=== PATIENT | female | born 1955 | race Caucasian/White ===

== ENCOUNTER 2023-12-09 16:00 | Observation (INO) | payer OTHER, SELFPAY ==
[2023-12-09] VITALS (7 sets, daily range): BP systolic 104–129; BP diastolic 76–97; PULSE 70–100; RESP 16–21; TEMP 36.2–36.8; O2SAT 96–100; BMI 28.4
--- NOTE | ~2023-12-09 | CT_ITS ---
EXAMINATION: CTA chest PE protocol DATE: 12/09/2023 19:32 INDICATION: Shortness of breath. Chest pain. TECHNIQUE: Computed tomography angiography (CTA) of the chest was performed with 100 mL Omnipaque-350 intravenous contrast timed to evaluate the pulmonary arteries. Coronal maximum intensity projection 3D-reconstructions were created by the technologist. Automated exposure control and iterative reconst ruction technique were employed. The dose-length product was 302.83 mGy-cm. COMPARISON: Chest 2 views 12/09/2023 FINDINGS: The lungs demonstrate smooth septal thickening, consistent mild pulmonary edema. There is m ild bronchiectasis in right middle lobe, anterior segment left upper lobe, and lingula. There are air space opacities and septal thickening and centrilobular nodules with volume loss involving the upper lobes, right middle lobe, and lingula. There are trace pleural effusions. Cardiomegaly is noted. Ther e are coronary artery calcifications. There is no pulmonary embolus. There is a left chest wall pacer with leads in the right atrium and right ventricle. There are bridging endplate osteophytes at multi ple levels in the spine, consistent with diffuse idiopathic skeletal hyperostosis (DISH). There is mi ld thoracic spondylosis. IMPRESSION: 1. Mild pulmonary edema. 2. 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 3. No pulmonary embolus. Reviewed, dictated and finalized at location A. IMPRESSION: 1. Mild pulmonary edema. 2. Multifocal lung disease, likely chronic infection such as mycobacterium aviu m intracellulare (LOLI). 3. No pulmonary embolus.
--- NOTE | ~2023-12-09 | XR_ITS ---
EXAMINATION: XR chest 2V DATE: 12/09/2023 18:24 INDICATION: Shortness of breath. TECHNIQUE: Frontal and lateral views of the chest were obtained. COMPARISON: None. FINDINGS: There is no pneumonia, pleural effusion, or pneumothorax. Cardiomegaly is noted. There is a left chest wall pacer with leads in the right atrium and right ventricle. IMPRESSION: 1. Cardiomegaly. Reviewed, dictated and finalized at location A. IMPRESSION: 1. Cardiomegaly.
--- NOTE | 2023-12-09 16:13 | ECG_ITS ---
Test Date: 2023-12-09 16:17:47 Measurements Intervals [place] Rate: 95 P: 58 GA: 152 QRS: -16 QRSD: 97 T: 238 QT: 406 QTc: 512 Interpretive Statements SINUS RHYTHM MODERATE T-WAVE ABNORMALITY, CONSIDER ANTEROLATERAL ISCHEMIA MODERATE T-WAVE ABNORMALITY, CONSIDER INFERIOR ISCHEMIA ABNORMAL ECG No previous ECG available for comparison Electronically Signed On 12-09-2023 16:48:15 CDT by Leonel Hartmann D.O.
--- NOTE | 2023-12-09 16:20 | ECG_ITS ---
Test Date: 2023-12-09 16:24:37 Measurements Intervals [place] Rate: 105 P: 60 MS: 146 QRS: -28 QRSD: 94 T: 251 QT: 364 QTc: 483 Interpretive Statements SINUS TACHYCARDIA DELAYED PRECORDIAL R/S TRANSITION MODERATE T-WAVE ABNORMALITY, CONSIDER INFERIOR ISCHEMIA BASELINE ARTIFACT- I, II, III, AVR, AVL, AVF, V1-V2 ABNORMAL ECG Compared to ECG 12/09/2023 16:17:47 HEART RATE HAS INCREASED Electronically Signed On 12-09-2023 16:47:54 CDT by Leonel Hartmann D.O.
--- NOTE | 2023-12-09 17:08 | PC.NURSE ---
1630 Spoke with rep Mich from [facility], states we can use [facility] to interrogate 1652 Spoke with Mary from [facility] states they will be faxing over results from interrogation
--- NOTE | 2023-12-09 18:11 | ED.SOB ---
HPI - SOB/Dyspnea General Chief Complaint: Shortness of Breath/Dyspnea <Nohemy Childs APRN - Last Filed: 12/09/23 22:38> Stated Complaint: SOB <Nohemy Childs APRN - Last Filed: 12/09/23 22:38> Time Seen by Provider: 12/09/23 16:59 <Nohemy Childs APRN - Last Filed: 12/09/23 22:38> Source: patient and family <Nohemy Childs APRN - Last Filed: 12/09/23 22:38> Mode of arrival: EMS <Nohemy Childs APRN - Last Filed: 12/09/23 22:38> Limitations: no limitations <Nohemy Childs APRN - Last Filed: 12/09/23 22:38> History of Present Illness HPI Narrative: Pt is a 68-year-old female who presents to the ER with complaints of intermittent chest pain and shortness of breath. She reports her previous welding process specialist was at [facility] through [facility], but pt reports he is no longer practicing there so she doesn't have a current welding process specialist. Pt reports she did see her welding process specialist within the past year. Approximately ten years ago pt had a pacemaker placed d/t syncopal episodes. She recently went to her PCP who put her on a heart monitor at home. Pt reports her PCP told her the heart monitor showed a. fib. It is unclear whether pt's PCP placed her on an anticoagulant or rate control medication, but pt reports she takes a baby aspirin every day. Pt reports this episode of chest pain and shortness of breath started last night. She reports she begins to feel her heart racing, then she becomes short of breath. Each episodes lasts approximately 1 minute. Pt has not taken any medication for pain. She presented to urgent care this morning who sent her here to the ER. <Nohemy Childs APRN - Last Filed: 12/09/23 22:38> MD elicited complaint: shortness of breath <Nohemy Childs APRN - Last Filed: 12/09/23 22:38> Onset (ago): hour(s) (24) <Nohemy Childs APRN - Last Filed: 12/09/23 22:38> Timing: intermittent <Nohemycarlos enrique Childs CORE LOADER - Last Filed: 12/09/23 22:38> Severity: severe <Nohemy MarijaJaylyn Childs CORE LOADER - Last Filed: 12/09/23 22:38> Exacerbating factors: nothing <Nohemy Childs CORE LOADER - Last Filed: 12/09/23 22:38> Relieving factors: rest <Nohemy Childs CORE LOADER - Last Filed: 12/09/23 22:38> Associated symptoms: palpitations <Nohemy Childs CORE LOADER - Last Filed: 12/09/23 22:38> Treatment prior to arrival: none <Nohemy Childs CORE LOADER - Last Filed: 12/09/23 22:38> Related Data Allergies/Adverse Reactions: Allergies Allergy/AdvReac Type Severity Reaction Status Date / Time No Known Allergies Allergy Verified 12/09/23 16:12 <Nohemy Childs CORE LOADER - Last Filed: 12/09/23 22:38> Review of Systems Review of Systems: All systems reviewed & are unremarkable except as noted in HPI and below <Nohemy Childs CORE LOADER - Last Filed: 12/09/23 22:38> [facility] Family History Family History: Family History (Updated 12/09/23 @ 22:38 by Yonatan Davila RN) Sibling Acute myocardial infarction Sibling Hypertension Father Hypertension <Nohemy Childs APRN - Last Filed: 12/09/23 22:38> Course JAVA GROOVY DEVELOPER/PA Physician Supervision I was made aware of the patient when the troponin came back elevated. I did review her EKG which I felt was concerning due to deep inverted T-waves, though I did not see any ST elevations. Given her cardiac history I did start heparin and consulted Interventional Cardiology Dr Chatman, case discussed with them, he did review the EKG and rhythm strips, did not feel this was a STEMI, recommended medical management at this time with admission to hospitalist and demonstration of aspirin and anticoagulation with beta-miguel and statin. Patient at this time will have intermittent heart rate in the 50s with lower blood pressures so at this time I am hesitant to order the beta-miguel. She does have some elevated WBCs and lactic acid, which may be from cardiac cause however will tentative
[2023-12-09 18:14] LABS: Basophils Absolute Auto 0.1 K/mm3 (0.0-0.1); Basophils Percent Auto 0.3 % (0.2-1.2); Hematocrit 46.3 % (37.0-47.0); Hemoglobin 14.5 g/dL (12.0-15.0); Immature Granulocyte Absolute 0.08 K/mm3 (0.00-0.031); Immature Granulocyte Percent A 0.4 % (0-0.5); Lymphocytes Absolute Auto 1.67 K/mm3 (0.9-3.2); Lymphocytes Percent Auto 8.7 % (18.3-44.2); Mean Corpuscular HGB Conc 31.3 g/dl (32-36); Mean Corpuscular Hemoglobin 32.5 pg (26-34); Mean Corpuscular Volume 103.8 fl (80-100); Mean Platelet Volume 10.7 fl (7.4-10.4); Monocytes Absolute Auto 0.7 K/mm3 (0.1-0.6); Monocytes Percent Auto 3.8 % (2.6-8.5); Neutrophils Absolute Auto 16.6 K/mm3 (1.3-6.7); Neutrophils Percent Auto 86.8 % (45.5-73.1); Platelet Count Result 410 k/mm3 (150-375); Red Blood Count 4.46 M/mm3 (4.2-5.4); Red Cell Distribution Width 13.9 % (11.5-14.5); White Blood Count 19.1 K/mm3 (4.5-10.0)
[2023-12-09] MEDS: MORPHINE SULFATE (*CRX) 2 MG/ML INJ IV PUSH (18:36)
[2023-12-09] MEDS: ONDANSETRON INJ 4 MG/2 ML VIAL IV PUSH (18:36)
[2023-12-09 19:03] LABS: INR 1.7; Partial Thromboplastin Time 32.5 Seconds (22.3-36.8); Prothrombin Time 20.1 Seconds (11.1-14.7)
[2023-12-09 19:04] LABS: Lactic Acid Reflex 2.6 mmol/L (0.7-2.0)
[2023-12-09 19:05] LABS: Lipase 97 U/L (23-300)
[2023-12-09] MEDS: HEPARIN SODIUM 5,000 UNITS/ML VIAL 3500 UNITS IV PUSH (19:07)
[2023-12-09] MEDS: ASPIRIN 81 MG CHEWABLE TABLET 324 MG PO (19:07)
[2023-12-09] MEDS: HEPARIN SOD/D5W 100 UNITS/ML 25,000 UNITS/250 ML BAG 7 UNITS IV CONT (19:07)
[2023-12-09 19:10] LABS: Alanine Aminotransferase 184 U/L (6-35); Albumin Level 4.5 g/dL (3.5-5.1); Alkaline Phosphatase 199 U/L (38-126); Anion Gap 13 mmol/L (4-12); Aspartate Amino Transferase 234 U/L (14-36); Bilirubin,Total 0.7 mg/dL (0.2-1.3); Blood Urea Nitrogen 29 mg/dL (7-17); CRP 0.9 mg/dL (<1.0); Calcium 8.8 mg/dL (8.4-10.2); Carbon Dioxide 21 mmol/L (22-30); Chloride 100 mmol/L (98-107); Estimated CRCL calculation 50 ml/min; Estimated Glomerular Filt Rate > 60; Glucose 212 mg/dL (65-110); Sodium 134 mmol/L (137-145)
[2023-12-09 19:13] LABS: NT Pro B Type Natriuretic Pept 11100 pg/mL (19.9-100)
[2023-12-09 20:50] LABS: MRSA (PCR) NOT DETECTED (NOT DETECTE)
[2023-12-09] MEDS: VANCOMYCIN 2,000 MG/NS 500 ML 2,000 MG/500 ML BAG 250 MG IVPB (20:53)
--- NOTE | 2023-12-09 21:04 | ECG_ITS ---
Test Date: 2023-12-09 21:36:24 Measurements Intervals [place] Rate: 94 P: 68 LA: 149 QRS: -7 QRSD: 95 T: 244 QT: 456 QTc: 573 Interpretive Statements SINUS RHYTHM BORDERLINE R WAVE PROGRESSION, ANTERIOR LEADS T WAVE ABNORMALITY IN DIFFUSE LEADS- CONSIDER ISCHEMIA ABNORMAL ECG Compared to ECG 12/09/2023 16:24:37 HEART RATE HAS DECREASED Electronically Signed On 12-10-2023 06:58:04 CDT by Leonel Hartmann D.O.
[2023-12-09 21:51] LABS: Reflex Lactic Acid Yes or No Add Lactic
--- NOTE | 2023-12-09 22:10 | ADMGEN ---
This patient, Nessa Peters, was admitted to IMU Room 212-01. Patient/family oriented to hospital policies and general routines including ID bracelet, bed and alarms, visiting hours, pain management, procedures, bathroom and other care routines, personal items, smoking policy, room service/diet, and visiting hours. Information on how to activate the Rapid Response Team has been discussed. Patient/Family are encouraged to report perceived risks to care and to ask questions if they do not understand what they are told or what they should do.
--- NOTE | 2023-12-09 22:24 | ECG_ITS ---
Test Date: 2023-12-09 22:28:51 Measurements Intervals [place] Rate: 88 P: 73 SD: 153 QRS: -19 QRSD: 96 T: 231 QT: 451 QTc: 547 Interpretive Statements SINUS RHYTHM WITH SINUS ARRHYTHMIA CONSIDER ANTERIOR INFARCT, AGE INDETERMINATE T WAVE ABNORMALITY IN DIFFUSE LEADS- CONSIDER ISCHEMIA BASELINE WANDER- AVR, AVL, AVF, V1 ABNORMAL ECG Compared to ECG 12/09/2023 21:36:24 NO SIGNIFICANT CHANGE Electronically Signed On 12-10-2023 06:45:02 CDT by Leonel Hartmann D.O.
[2023-12-09] MEDS: CEFEPIME 2 GM/NS 50 ML 2 GM/50 ML BAG IVPB (23:30)
[2023-12-10] VITALS: BP 121/89; PULSE 85; RESP 20; TEMP 36.4; O2SAT 94
--- NOTE | 2023-12-10 | ECHO_ITS ---
Patient Info Name: Nessa Peters Age: 68 years : 1955 Gender: Female Ht: 64 in Wt: 162 lbs BSA: 1.84 m2 HR: 71 bpm BP: 113 / 77 mmHg Heart Rhythm: Sinus Rhythm Technical Quality: Good Exam Date: 12/10/2023 9:44 AM Exam Location: Echo Lab Patient Status: Outpatient Admit Date: 12/09/2023 Staff Ordering Physician: Faiza Nicholson DO Tooth Cutter: Bib Marroquin RDCS Attending Provider: Thi Serna APRN Referring Physician: Bharat MEEKS; Exam Type: CA echo doppler color flow Study Info Indications - tachy amari syndrom Complete two-dimensional, color flow and Doppler transthoracic echocardiogram is performed. Summary 1. Complete two-dimensional, color flow and Doppler transthoracic echocardiogram is performed. 2. Moderate left ventricular enlargement with severe global systolic dysfunction ejection fraction 25-30%. 3. Mildly sclerotic aortic valve which is nonstenotic. 4. Enlarged and hypodynamic right ventricle. 5. Mild mitral and aortic regurgitation. Left Ventricle Left ventricular chamber dimension is moderately enlarged. Left ventricular systolic function is severely reduced, estimated at 25-30%. The left ventricular diastolic function is grade I diastolic dysfunction. Right Ventricle Right ventricular chamber dimension is mildly enlarged. Left Atria Left atrial chamber dimension is mildly enlarged. Right Atria Right atrial chamber dimension is normal. Aortic Valve The aortic valve is trileaflet. There is mild aortic valve sclerosis. There is mild aortic valve regurgitation. Pulmonic Valve The pulmonic valve is not well visualized. Mitral Valve The mitral valve has normal leaflets. There is mild mitral valve regurgitation. Tricuspid Valve The tricuspid valve leaflets are normal. Pericardium/Pleural The pericardium appears normal. Aorta The aortic root size at the sinus of Valsalva is normal. Left Ventricular Outflow Tract Name Value Normal LVOT 2D LVOT Diameter 1.9 cm LVOT Doppler LVOT Peak Gradient 2 mmHg LVOT Mean Gradient 1 mmHg LVOT VTI 11 cm LVOT VTI/AV VTI Ratio 0.6 LVOT Stroke Volume 30 ml LVOT CO 3.2 l/min LVOT CI 1.8 l/min/m2 Pulmonic Valve Name Value Normal PV Doppler PV Peak Gradient 2 mmHg Mitral Valve Name Value Normal MV Doppler MV Decel [place] 584 cm/s2 MV PHT 46 ms MV Area (PHT) 4.8 cm2 4.0-5.0 MV Regurgitation Do
[2023-12-10] MEDS: DOXYCYCLINE 100 MG/NS 100 ML 100 MG/100 ML BAG IVPB (00:25)
[2023-12-10 01:05] LABS: INR 1.5; Lactic Acid 1.6 mmol/L (0.7-2.0); Prothrombin Time 18.6 Seconds (11.1-14.7)
[2023-12-10 01:08] LABS: Cholesterol 127 mg/dL (0-200); HDL Direct 46 mg/dL; Triglycerides 118 mg/dL (<150)
[2023-12-10 01:18] LABS: LDL Cholesterol Direct 56 mg/dL
[2023-12-10 03:03] VITALS: PULSE 85; RESP 20; O2SAT 94
[2023-12-10 04:00] VITALS: BP 113/77; PULSE 71; RESP 16; TEMP 36.2; O2SAT 96
[2023-12-10] MEDS: MORPHINE SULFATE (*CRX) 2 MG/ML INJ IV PUSH (04:18)
[2023-12-10 05:18] LABS: Estimated CRCL calculation 55 ml/min; Estimated Glomerular Filt Rate > 60
--- NOTE | 2023-12-10 05:47 | PM.SD2 ---
Same Day Admit/Disch: HPI History of Present Illness Chief complaint: Multifocal pneumonia, A. fib, Congestive heart shawna Narrative: Nessa Peters is a 68 year old female with a past medical history of anxiety, essential hypertension, hyperlipidemia, and pacemaker last year at [facility] due to what sounds like sinus pauses/sick sinus syndrome who presented to the ER via EMS from [facility] urgent care for evaluation of shortness of breath. The patient lives in [place] but was here visiting a friend. She reports that she started having intermittent chest pain that became more persistent so she went to urgent care. Given her symptoms patient was transferred to the ER via EMS. She reports that the pain is better when she takes deep breaths. She reports that the pain is quite severe and she has not been able to sleep for the last 3 days due to the pain. She denies any lower extremity swelling or orthopnea. She has been intermittently more short of breath which wakes her from sleep. She reports that she has been having a constant but more persistent cough over the last several months. She has not had any recent imaging per her report. At urgent care she was noted to be having episodes of tachycardia interspersed with bradycardia. Rhythm for most part seems to be sinus. The patient's pacemaker kicks in with a rate around 50. The patient's pacemaker was interrogated in the ER and patient had been after having episodes of tachycardia up to a rate of 199. ER provider stated the patient was developing episodes of chest pain when she would be in the tachycardic rhythm. The patient within call out that she was having difficulty breathing and really did not feel right when her heart rate was low. These episodes would be associated with slightly lower blood pressures. The patient fluctuated between these rhythms 3 times since she has been admitted to the IMU around 23:30. Patient's external med rec does indicate that she has been on Xarelto since May. She states her pacemaker placed 1 year ago at [facility] by Dr. Whittington. She reports he recently retired and she has been reassigned to another physician but she does not know their name. The ER provider interpreted that the patient wanted to get established with a new spout liner over here. The patient stated that no she wanted to go back to see her spout liner intent since that is where she lives. Subsequently I contacted transfer line to arrange transfer. The patient was started on heparin drip in the ER due to the patient having an elevated troponin. I suspect that the ER provider did not realize that the patient had been on Xarelto since May according to external medication reconciliation. Patient PTT was critical and held according to protocol. The patient's pain was relieved with morphine. She denied any associated diaphoresis. The patient also reports several months of cough. She reports her cough is nonproductive. She denies fevers or chills. It is unclear if she is mention this to her primary care provider. Due to the patient's reported cough and leukocytosis a CTA of the chest was obtained which demonstrated mild pulmonary edema and multifocal lung disease likely chronic infection such as Mycobacterium avium intracellulare negative for pulmonary embolism. In the ER the patient received Zofran, vancomycin, doxycycline and cefepime. Other pertinent labs included AST 234 ALT 184 and alk-phos 199. Troponin was 2.78 start and decreased 22.63 and 2.28. Patient multiple EKGs which demonstrated anterior lateral and inferior T-wave of a concerning for ischemia. The patient also had multiple EKGs with varying degrees of QT prolongation the longest of which was 573. The patient's only other complaint was insomnia. She repetitively asked for her home trazodone and Abilify. I tried to explain to the patient that these would be held due to her heart rhythm. She was not pleased with this. [employer]
[2023-12-10 07:34] VITALS: BP 152/97; PULSE 97; RESP 18; TEMP 36.4; O2SAT 96
[2023-12-10 08:00] VITALS: O2SAT 96
[2023-12-10] MEDS: ALPRAZolam (*CRX) 0.25 MG TABLET PO (08:33)
[2023-12-10] MEDS: FAMOTIDINE 20 MG TABLET 40 MG PO (08:33)
[2023-12-10] MEDS: LOSARTAN POTASSIUM 50 MG TABLET PO (08:33)
[2023-12-10] MEDS: rOPINIRole HCL 1 MG TABLET PO (08:34)
[2023-12-10] MEDS: ATORVASTATIN 20 MG TABLET PO (08:34)
[2023-12-10] MEDS: oxyBUTYnin CHLORIDE XL 5 MG TAB.ER.24 15 MG PO (08:34)
[2023-12-10 08:38] VITALS: O2SAT 96
[2023-12-10 08:53] LABS: Partial Thromboplastin Time 29.9 Seconds (22.3-36.8)
[2023-12-10] MEDS: HEPARIN SODIUM 5,000 UNITS/ML VIAL 4000 UNITS IV PUSH (09:39)
== END 2023-12-10 10:26 | disposition short-term general hospital (02) ==
LOC: ANHED 20:04 → ANHIMU 21:46
PROVIDERS: Registered Nurse; Specialist; Student in an Organized Health Care Education/Training Program; Admitting Provider Internal Medicine; Emergency Provider Emergency Medicine; Visit Provider Nurse Practitioner Acute Care
DX: I21.4 Non-ST elevation (NSTEMI) myocardial infarction (principal); A41.9 Sepsis, unspecified organism; R65.20 Severe sepsis without septic shock; J18.9 Pneumonia, unspecified organism; J96.01 Acute respiratory failure with hypoxia; I48.91 Unspecified atrial fibrillation; I11.0 Hypertensive heart disease with heart failure; I50.9 Heart failure, unspecified; R79.89 Other specified abnormal findings of blood chemistry; E78.5 Hyperlipidemia, unspecified; I08.0 Rheumatic disorders of both mitral and aortic valves; F41.9 Anxiety disorder, unspecified; F32.A Depression, unspecified; Z95.0 Presence of cardiac pacemaker; Z79.01 Long term (current) use of anticoagulants
CPT/HCPCS: 36415; 71046; 71275; 80053; 80061; 82565; 83605; 83690; 83735; 83880; 84484; 85025; 85610; 85730; 86140; 87040; 87641; 93005; 93306; 96365; 96366; 96367; 96368; 96375; 99285; A9270; G0378; J0692; J1644; J2270; J2405; J3370; Q9967